=== PATIENT | female | born 1960 | race Caucasian/White ===

== ENCOUNTER 2018-06-10 06:18 | Day surgery (SDC) | payer OTHER ==
[2018-06-10] MEDS ORDERED: EPHEDrine SULFATE 50 MG/5 ML SYG (07:00)
[2018-06-10] MEDS: SOD CHLORIDE 0.9% 1,000 ML IV (07:31)
[2018-06-10] MEDS ORDERED: PROPOFOL 20 ML (09:04)
[2018-06-10] MEDS ORDERED: CEFAZOLIN 1 GM INJ (09:04)
[2018-06-10] MEDS ORDERED: ROCURONIUM 50 MG INJ (09:04)
[2018-06-10] MEDS ORDERED: FENTAnyl 50 MCG/ML VIAL (09:05)
[2018-06-10] MEDS ORDERED: MIDAZOLAM 1 MG/ML 2 ML INJ (09:05)
[2018-06-10] MEDS ORDERED: ROPIVACAINE 0.5 % 30 ML VIAL (09:05)
[2018-06-10] MEDS ORDERED: FENTAnyl 50 MCG/ML VIAL IV ×2 (09:30)
[2018-06-10] MEDS ORDERED: EPHEDrine SULFATE 50 MG/5 ML SYG IV (09:30)
[2018-06-10] MEDS ORDERED: HYDROmorphONE 1 MG/5 ML IV SYRINGE IV ×3 (09:30)
[2018-06-10] MEDS ORDERED: METOCLOPRAMIDE 10 MG INJ IV (09:30)
[2018-06-10] MEDS ORDERED: ONDANSETRON 4 MG INJ IV (09:30)
[2018-06-10] MEDS ORDERED: DIPHENHYDRAMINE 50 MG INJ IV (09:30)
[2018-06-10] MEDS ORDERED: OXYCODONE/ACETAMINOPHEN (5/325) TAB PO (09:30)
[2018-06-10] MEDS ORDERED: MEPERIDINE 25 MG INJ IV (09:30)
[2018-06-10] MEDS: CEFAZOLIN 2 GM/50 ML (PMX) 50 ML IVPB (09:42)
[2018-06-10] MEDS ORDERED: DEXAMETHASONE 4 MG/ML 1 ML INJ (10:27)
[2018-06-10] MEDS ORDERED: ONDANSETRON 4 MG INJ (10:27)
[2018-06-10] MEDS ORDERED: METOCLOPRAMIDE 10 MG INJ (10:27)
[2018-06-10] MEDS ORDERED: KETOROLAC 30 MG INJ (10:28)
[2018-06-10] MEDS ORDERED: SUGAMMADEX SODIUM 200 MG/2 ML VIAL IV (10:28)
[2018-06-10] MEDS: FENTAnyl 50 MCG/ML VIAL IV ×2 (10:56→11:02)
[2018-06-10] MEDS ORDERED: HYDROCODONE/APAP (5/325) TAB PO (11:00)
== END 2018-06-10 12:49 | disposition home or self-care (01) ==
LOC: SDS 06:18
DX: K40.30 Unilateral inguinal hernia, with obstruction, without gangrene, not specified as recurrent (principal); I10 Essential (primary) hypertension; E78.5 Hyperlipidemia, unspecified
CPT/HCPCS: 49507; 93005